=== PATIENT | male | born 1970 | race Asian ===

== ENCOUNTER 2019-09-24 19:52 | Emergency (ER) | payer BC ==
[~2019-09-24] VITALS: Ht 172.7 cm; Wt 74.8 kg
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
--- NOTE | 2019-09-24 20:27 | Emergency Room Report ---
History of Present Illness General Chief Complaint: Chest Pain Present Illness HPI 48-year-old male history of hypertension high cholesterol, coronary artery disease presented for chest pain. He reports intermittent chest pain for the past 2 hours. Denies any nausea vomiting shortness of breath fever or cough. Pain is central pressure-like nonradiating and intermittent worse when he is anxious. Patient states he did have stents placed in 2007 in [facility]. He is an occasional smoker. Allergies: Coded Allergies: No Known Allergies (Unverified , 09/24/19) COVID-19 Screening Contact w/high risk pt: No Recent Travel to affected area: No Experienced COVID-19 symptoms?: No Patient History Reviewed Nursing Documentation: PMH: Agreed; PSxH: Agreed Review of Systems All Other Systems: negative except mentioned in HPI Physical Exam Vital Signs Date Time Temp Pulse Resp B/P (MAP) Pulse Ox O2 Delivery O2 Flow Rate FiO2 09/24/19 20:07 98.4 66 16 154/111 (125) 97 Room Air Sp02 EP Interpretation: reviewed, normal General Appearance: well appearing, no apparent distress Head: normocephalic, atraumatic Eyes: bilateral eye PERRL, bilateral eye EOMI ENT: hearing grossly normal, moist mucus membranes Neck: full range of motion, supple Respiratory: lungs clear, normal breath sounds, no rhonchi, no respiratory distress, no retraction, no wheezing Cardiovascular #1: normal peripheral pulses, regular rate, rhythm, no murmur Gastrointestinal: non tender, soft, non-distended, no guarding Neurologic: alert, oriented x3, no focal defects Skin: normal color, warm/dry Medical Decision Making ER Course Differential diagnosis included but not limited to angina, anxiety, pleurisy, musculoskeletal pain, GERD to name a few. On exam patient in no acute distress. Vital signs were stable. EKG had no ST changes. Patient has multiple cardiac risk factors. Laboratory studies were ordered. Chest x-ray ordered. Patient did take aspirin prior to arrival. Laboratory studies unremarkable. Troponin negative. EKG had no ischemic changes. Chest x-ray showed no evidence of pneumonia or CHF. Patient did have cardiac risk factors I did offer admission to the patient for observation however he declined and requested to be discharged home. He states he lives close by and will return for any worsening symptoms. Again I encouraged him to stay in the hospital as he again has a cardiac history but again he declined. He had no active chest pain in the ER. He was anxious and I do think this was contributing to his intermittent chest pain but again currently no active chest pain with a negative troponin and EKG without ischemic changes. Patient discharged with close outpatient follow-up. EKG Diagnostic Results Rate: normal Rhythm: NSR ST Segments: no acute changes Other Impression Q waves anteriorly Rhythm Strip Diag. Results Rate: 68 Rhythm: NSR, no PVC's, no ectopy Other Impression Normal sinus rhythm Last Vital Signs Date Time Temp Pulse Resp B/P (MAP) Pulse Ox O2 Delivery O2 Flow Rate FiO2 09/24/19 20:15 66 16 Room Air 09/24/19 20:07 98.4 154/111 (125) 97 Disposition: HOME, SELF-CARE Condition: Improved Additional Instructions: Patient is instructed to follow-up with her primary care doctor, primary care clinic or county clinic in 1 to 2 days. Patient instructed to return for any worsening symptoms or concerns. Please note that the documentation in this note was used with [employer] dictation technology. Pleae be advised that this may lead to erroneous text due to misinterpretation by the dictation software Leonidas Lopez M.D. Sep 24, 2019 20:27
[2019-09-24 20:38] LABS: BASOPHILS % (AUTO) 1.6 % (0.0-2.0); EOSINOPHILS % (AUTO) 5.2 % (0.0-3.0); HEMATOCRIT 46.3 % (42.0-52.0); HEMOGLOBIN 15.5 G/DL (14.2-18.0); LYMPHOCYTES % (AUTO) 34.7 % (20.0-45.0); MEAN CORPUSCULAR VOLUME 88 FL (80-99); MONOCYTES % (AUTO) 7.4 % (1.0-10.0); NEUTROPHILS % (AUTO) 51.1 % (45.0-75.0); PLATELET COUNT 328 K/UL (150-450); RED BLOOD COUNT 5.25 M/UL (4.70-6.10); RED CELL DISTRIBUTION WIDTH 12.1 % (11.6-14.8); WHITE BLOOD COUNT 6.9 K/UL (4.8-10.8)
[2019-09-24 20:51] LABS: ANION GAP 12 mmol/L (5-15); BLOOD UREA NITROGEN 18 mg/dL (7-18); CARBON DIOXIDE 23 MMOL/L (21-32); CHLORIDE 106 MMOL/L (98-107); CREATININE 1.1 MG/DL (0.55-1.30); POTASSIUM 3.7 MMOL/L (3.5-5.1); SODIUM 141 MMOL/L (136-145)
[2019-09-24 20:56] LABS: ALANINE AMINOTRANSFERASE 32 U/L (12-78); ALBUMIN 4.1 G/DL (3.4-5.0); ALBUMIN/GLOBULIN RATIO 1.3 (1.0-2.7); ALKALINE PHOSPHATASE 69 U/L (46-116); ASPARTATE AMINO TRANSFERASE 23 U/L (15-37); BILIRUBIN,TOTAL 0.4 MG/DL (0.2-1.0)
--- NOTE | 2019-09-24 20:59 | Diagnostic Imaging Report ---
EXAM: XR Chest, 1 View CLINICAL HISTORY: PAIN TECHNIQUE: Frontal view of the chest. COMPARISON: No relevant prior studies available. FINDINGS: Lungs: Low lung volumes with bronchovascular crowding. No consolidation, pleural effusion, or pneumothorax. Pleural space: See above. Heart: Unremarkable. No cardiomegaly. Mediastinum: Unremarkable. Bones/joints: Unremarkable. IMPRESSION: 1. Low lung volumes with bronchovascular crowding. 2. Otherwise no acute cardiopulmonary disease. 3. If there is continued concern, recommend frontal and lateral chest radiographs or CT.
[2019-09-24 21:00] VITALS: BP 140/87
[2019-09-24 22:05] VITALS: BP 136/81
[2019-09-24 22:15] VITALS: BP 136/81
== END 2019-09-24 22:15 | disposition home or self-care (01) ==
LOC: EMR 21:14
DX: R07.9 Chest pain, unspecified (principal); Z95.5 Presence of coronary angioplasty implant and graft
CPT/HCPCS: 36415; 71045; 80053; 84484; 85025; 93005; 99284